=== PATIENT | male | born 1950 | race Two or more races ===

== ENCOUNTER → 2024-06-28 | Outpatient (CLI) | payer MEDICARE ==
--- NOTE | 2024-06-28 15:17 | XR ---
EXAMINATION TYPE: XR chest 2V DATE OF EXAM: 06/28/2024 3:07 PM COMPARISON: None TECHNIQUE: XR chest 2V Frontal and lateral views of the chest. Additional coned in radiograph of the left shoulder was obtained. CLINICAL INDICATION:Male, 73 years old with history of Z18.10 RETAINED METAL FRAGMENTS, UNSPECIFIED; FINDINGS: Lungs/Pleura: There is no evidence of pleural effusion, focal consolidation, or pneumothorax. There is a radiopaque 4 mm density within the left scapular region. Pulmonary vascularity: Unremarkable. Heart/mediastinum: Cardiomediastinal silhouette is unremarkable. Musculoskeletal: Multiple level degenerative disc disease changes seen throughout the spine. Remote i njury to the distal left clavicle. IMPRESSION: 1. No acute cardiopulmonary disease/process. 2. Radiopaque 4 mm density within the left scapular region. May represent reported foreign body. [facility], , 06/28/2024 3:14 PM
--- NOTE | 2024-06-28 15:19 | XR ---
EXAMINATION TYPE: XR abdomen 2V DATE OF EXAM: 06/28/2024 COMPARISON: NONE HISTORY: Retained metal fragments TECHNIQUE: Single supine view the abdomen was obtained. FINDINGS: Small bowel demonstrates no air-fluid levels or dilatation. Gas and fecal material is seen in non-distended colon. No convincing evidence for pneumoperitoneum. No unusual calcifications. The lung bases are clear. The osseous structures are intact. Multilevel degenerative changes of the thoracolumbar spine with le voscoliotic curvature of the thoracolumbar spine. Bilateral shoulder arthroplasty changes. No sizable retained metallic foreign fragment identified. IMPRESSION: 1. Overall nonobstructive bowel gas pattern. 2. No unexpected retained metallic foreign fragments identified. [facility], , 06/28/2024 3:16 PM
== END | disposition home or self-care (01) ==
LOC: EDBD 14:32 → RADXRMAIN 14:32
PROVIDERS: ATTEND Urology
DX: Z18.10 Retained metal fragments, unspecified (principal)
CPT/HCPCS: 71046; 74019

== ENCOUNTER → 2024-06-28 | Outpatient (CLI) | payer MEDICARE ==
--- NOTE | 2024-06-29 21:58 | MR ---
EXAMINATION TYPE: MR abdomen wo/w con DATE OF EXAM: 06/28/2024 5:14 PM INDICATION: Patient age:Male; 73 years old; Reason for study: R19.00 INTRA-ABD AND PELVIC SWELL; [facility]. History of abdominal aortic aneurysm repair . COMPARISON: Abdominal radiograph 06/28/2024, CT abdomen and pelvis report from outside institution 11/24, Outside institution pelvic ultrasound 11/01/2023 report, outside institution scrotal ultrasound report 05/15/2024. TECHNIQUE: Multiplanar multi-sequence imaging was performed without and with IV contrast. The patie nt was given 8 ccs of Gadavist intravenously and dynamic imaging was performed. Post IV contrast subt raction images were also submitted for review. FINDINGS: LOWER CHEST: Linear atelectasis and/or scarring within the right lung base. ABDOMEN Liver: Noncirrhotic morphology. Enlarged measuring 20.6 cm in CC dimension. No drop in signal to sugg est hepatic steatosis. Gallbladder and Bile ducts: Gallbladder is surgically absent. No biliary duct dilatation. Pancreas: No pancreatic ductal dilatation. Pancreatic neck 6 mm T2 hyperintense lesion without eviden ce of enhancement or mural nodularity (series 901, image 26). Spleen: Unremarkable. Adrenal glands: Unremarkable. Kidneys: No hydronephrosis. T2 hyperintense thin wall nonenhancing left renal subcentimeter cyst. No follow up recommended. Left mid kidney lateral focal region of cortical thinning likely related to pr ior insult. Stomach and Bowel: Unremarkable as visualized. Peritoneum/retroperitoneum: No evidence of pneumoperitoneum, free fluid, or adenopathy. There is a l obulated 3.4 x 5.1 x 4.4 cm thin-walled T2 hyperintense/T1 hypointense lesion situated between the ab dominal aorta and the IVC at the level of the inferior kidneys (series 801, image 28). A lobulated po rtion extends posterior to the abdominal aorta. Demonstrates smooth thin wall enhancement. No interna l enhancement or mural nodularity. Possible minimal mass effect upon the IVC. Vasculature: Unremarkable. No aortic aneurysm. Abdominal wall: Unremarkable. Musculoskeletal: The osseous structures appear intact. Multilevel degenerative disease with S-shaped scoliotic curvature of the thoracolumbar spine. IMPRESSION: 1. Retroperitoneal cystic lesion measuring up to 5.1 cm situated between the IVC and abdominal aorta. Demonstrates somewhat lobulated appearance with thin enhancing smooth wall. No mural nodularity or i nternal enhancement. Etiologies include lymphocele in the setting of prior reported abdominal aneurys m repair versus pseudocyst versus other etiologies. Consider follow-up MR in one year. 2. Small cystic 6 mm lesion within the pancreatic neck without enhancement or mural nodularity. Possi ble pseudocyst versus side branch intraductal papillary mucinous neoplasm. Follow-up MR pancreas with IV contrast is recommended in one-year to assess for stability. [facility], , 06/29/2024 9:55 PM
== END | disposition home or self-care (01) ==
LOC: EDBD → RADMRIMAIN 15:46
PROVIDERS: ATTEND Urology
DX: K86.89 Other specified diseases of pancreas (principal); N28.1 Cyst of kidney, acquired; Z86.79 Personal history of other diseases of the circulatory system
CPT/HCPCS: 74183; A9585

== ENCOUNTER → 2024-07-12 | Outpatient (CLI) | payer MEDICARE ==
--- NOTE | 2024-07-13 10:43 | MR ---
ADDENDUM: There are symmetric small to moderate-sized bilateral scrotal fluid collection or hydroceles seen. No suspicious focal enhancing intratesticular mass is present bilaterally. [facility], , 07/13/2024 8:46 AM EXAMINATION TYPE: MR pelvis wo/w con DATE OF EXAM: 07/12/2024 7:38 PM COMPARISON: MRI abdomen June 28, 2024. CLINICAL INDICATION: Male, 73 years old with history of R19.0 intra-abd and pelvic swelling, mass and lump, pelvic pain IV Contrast: 7 cc Gadavist (None if empty) CONTRAST: Standard multiplanar, multisequence MRI departmental protocol images were obtained without contrast and with 7 mL intravenous Gadavist gadolinium contrast. FINDINGS: Metallic artifact from bilateral hip arthroplasty causes streak artifact somewhat limiting evaluation of pelvic structures. There is enlarged prostate consistent with BPH bulging on bladder base. Urinary bladder is unremarkable. No suspicious small or large bowel dilatation. No free fluid in the pelvis. Multilevel disc desiccation. Multilevel [id number] disc space narrowing and spurring in the mid to lower lumbar spine is present. No groin hernia or adenopathy is seen. No suspicious enhancing pelvic masses or enlarged pelvic lymph nodes. IMPRESSION: No suspicious masses or adenopathy in the pelvis identified. [facility], , 07/13/2024 8:14 AM [facility]
== END | disposition home or self-care (01) ==
LOC: EDBD → RADMRIMAIN 21:00
PROVIDERS: ATTEND Urology
DX: R19.00 Intra-abdominal and pelvic swelling, mass and lump, unspecified site (principal)
CPT/HCPCS: 72197; A9585